=== PATIENT | female | born 1970 | race Caucasian/White ===

== ENCOUNTER 2023-09-24 13:38 | Emergency (ER) | payer OTHER ==
[2023-09-24 13:54] VITALS: BP 129/85; PULSE 67; RESP 17; TEMP 98; BMI 26.4
[2023-09-24] MEDS ORDERED: LIDOCAINE 4% PATCH TP ONE (14:22)
[2023-09-24] MEDS ORDERED: ACETAMINOPHEN 500 MG TABLET (FP) ONE (14:22)
[2023-09-24] MEDS: ACETAMINOPHEN 500 MG TABLET (FP) PO ONE (14:27)
[2023-09-24] MEDS: LIDOCAINE 4% PATCH TP ONE (14:27)
[2023-09-24] MEDS ORDERED: oxyCODONE HCL 5 MG TABLET ONE (14:45)
[2023-09-24] MEDS: oxyCODONE HCL 5 MG TABLET PO ONE (14:46)
[2023-09-24] MEDS ORDERED: diazePAM 2 MG TABLET ONE (14:56)
[2023-09-24] MEDS: diazePAM 2 MG TABLET PO ONE (14:57)
[2023-09-24] MEDS ORDERED: LIDOCAINE PATCH REMOVAL MC SCH (22:00)
== END 2023-09-24 14:59 | disposition home or self-care (01) ==
LOC: JERFT 13:38
DX: M54.50 Low back pain, unspecified (principal)
CPT/HCPCS: 99283-25

== ENCOUNTER 2024-06-07 11:29 | Emergency (ER) | payer OTHER ==
[2024-06-07 11:40] VITALS: BP 131/73; PULSE 77; RESP 18; TEMP 98.3; BMI 30.2
[2024-06-07] MEDS ORDERED: KETOROLAC TROMETHAMINE 30 MG/1 ML VIAL ONE (12:45)
[2024-06-07] MEDS: KETOROLAC TROMETHAMINE 30 MG/1 ML VIAL IM ONE (13:02)
== END 2024-06-07 14:07 | disposition home or self-care (01) ==
LOC: JERFT 11:29
PROC: 3E0233Z Introduction of Anti-inflammatory into Muscle, Percutaneous Approach (ICD-10-PCS; principal; 2024-06-07)
DX: M54.50 Low back pain, unspecified (principal); G89.29 Other chronic pain
CPT/HCPCS: 72100-TC-FY; 99284-25